=== PATIENT | male | born 1985 | race Caucasian/White ===

== ENCOUNTER 2023-11-20 03:46 | Emergency (ER) | payer MEDICAID ==
[~2023-11-20] VITALS: Ht 185.4 cm; Wt 78.0 kg
[2023-11-20 03:58] VITALS: BP 120/89; PULSE 95; RESP 18; TEMP 98.2; O2SAT 98
== END 2023-11-20 06:19 | disposition left against medical advice (07) ==
LOC: ER 03:48
DX: M54.50 Low back pain, unspecified (principal); Z53.21 Procedure and treatment not carried out due to patient leaving prior to being seen by health care provider
CPT/HCPCS: 99281

== ENCOUNTER 2023-11-22 13:04 | Emergency (ER) | payer MEDICAID ==
[~2023-11-22] VITALS: Ht 185.4 cm; Wt 76.4 kg
[2023-11-22] MEDS ORDERED: bacitracin 15gm ointment TP ONE (14:35)
[2023-11-22 15:32] VITALS: BP 128/77; PULSE 94; RESP 16; TEMP 98.2; O2SAT 100
== END 2023-11-22 15:39 | disposition home or self-care (01) ==
LOC: ER 13:04
DX: S01.81XD Laceration without foreign body of other part of head, subsequent encounter (principal); F17.200 Nicotine dependence, unspecified, uncomplicated; F12.10 Cannabis abuse, uncomplicated; F15.10 Other stimulant abuse, uncomplicated; Z88.8 Allergy status to other drugs, medicaments and biological substances; X58.XXXD Exposure to other specified factors, subsequent encounter
CPT/HCPCS: 99282

== ENCOUNTER 2023-11-30 20:23 | Emergency (ER) | payer MEDICAID ==
[~2023-11-30] VITALS: Ht 175.3 cm; Wt 70.0 kg
[2023-11-30 20:29] VITALS: BP 144/80; PULSE 80; RESP 18; TEMP 98; O2SAT 99
== END 2023-11-30 20:55 | disposition home or self-care (01) ==
LOC: ER 20:24
DX: M25.562 Pain in left knee (principal); F12.90 Cannabis use, unspecified, uncomplicated; F15.90 Other stimulant use, unspecified, uncomplicated; Z91.09 Other allergy status, other than to drugs and biological substances
CPT/HCPCS: 99281

== ENCOUNTER 2023-12-04 01:30 | Emergency (ER) | payer MEDICAID ==
[~2023-12-04] VITALS: Ht 185.4 cm; Wt 74.4 kg
[2023-12-04 04:24] VITALS: BP 132/74; PULSE 90; RESP 16; TEMP 98; O2SAT 100
== END 2023-12-04 04:26 | disposition home or self-care (01) ==
LOC: ER 01:30
DX: M79.672 Pain in left foot (principal); F12.90 Cannabis use, unspecified, uncomplicated; F15.90 Other stimulant use, unspecified, uncomplicated; Z91.09 Other allergy status, other than to drugs and biological substances
CPT/HCPCS: 99281

== ENCOUNTER 2023-12-08 12:58 | Emergency (ER) | payer MEDICAID ==
[~2023-12-08] VITALS: Ht 185.4 cm; Wt 73.6 kg
[2023-12-08 13:07] VITALS: TEMP 98.1
[2023-12-08 14:02] VITALS: BP 101/55; PULSE 92; RESP 18; O2SAT 99
[2023-12-08] MEDS ORDERED: ibuprofen tablet 400 MG TABLET PO ONE (14:10)
== END 2023-12-08 14:29 | disposition home or self-care (01) ==
LOC: ER 12:59
DX: R61 Generalized hyperhidrosis (principal); Z59.00 Homelessness unspecified; Z56.0 Unemployment, unspecified
CPT/HCPCS: 99282

== ENCOUNTER 2024-01-26 22:16 | Emergency (ER) | payer MEDICAID, OTHER ==
[~2024-01-26] VITALS: Ht 180.3 cm; Wt 68.2 kg
[2024-01-26 22:19] VITALS: BP 148/88; PULSE 116; TEMP 98.5; O2SAT 96
[2024-01-26 23:32] VITALS: RESP 19
[2024-01-26] MEDS: ketorolac trometh inj. 60 MG/2 ML VIAL IM ONE (23:32)
[2024-01-26] MEDS: CefTRIAXone 1000mg IM Kit (w/lidocaine diluent) IM ONE (23:39)
[2024-01-26] MEDS ORDERED: CEPH-585 PO (23:46)
[2024-01-27 00:32] LABS: BASOPHILS % (AUTO) 0.6 % (0-1); EOSINOPHILS # (AUTO) 0.2 X10'3 (0-0.9); EOSINOPHILS % (AUTO) 2.7 % (0-6); HEMATOCRIT 36.5 % (42.0-52.0); HEMOGLOBIN 12.4 g/dl (14.0-17.9); LYMPHOCYTES # (AUTO) 1.7 X10'3 (1.1-4.8); LYMPHOCYTES % (AUTO) 22.7 % (21-51); MEAN CORPUSCULAR HEMOGLOBIN 29.2 PG (27.0-31.0); MEAN CORPUSCULAR VOLUME 85.9 FL (78-98); MEAN PLATELET VOLUME 8.3 FL (7.4-10.4); MONOCYTES # (AUTO) 0.8 X10'3 (0-0.9); MONOCYTES % (AUTO) 10.4 % (2-12); NEUTROPHILS # (AUTO) 4.9 X10'3 (1.8-7.7); NEUTROPHILS % (AUTO) 63.6 % (42-75); PLATELET COUNT 234 X10'3 (140-440); RED BLOOD COUNT 4.25 X10'6 (4.70-6.10); RED CELL DISTRIBUTION WIDTH 14.7 % (11.5-14.5); WHITE BLOOD COUNT 7.7 X10'3 (4.5-11.0)
[2024-01-27 00:42] LABS: ALANINE AMINOTRANSFERASE 50 U/L (12-78); ALBUMIN 3.7 G/DL (3.4-5.0); ALBUMIN/GLOBULIN RATIO 1.2 (1.1-1.5); ALKALINE PHOSPHATASE 94 IU/L (46-116); ANION GAP 9 (8-16); ASPARTATE AMINO TRANSFERASE 32 U/L (10-37); BILIRUBIN,TOTAL 0.4 MG/DL (0.1-1.0); BLOOD UREA NITROGEN 17 MG/DL (7-18); BUN/CREATININE RATIO 22.1 (10.0-20.0); CALCIUM 8.3 MG/DL (8.5-10.1); CHLORIDE 103 MMOL/L (99-107); CREATININE 0.77 MG/DL (0.60-1.10); GLUCOSE 107 MG/DL (70-104); POTASSIUM 3.6 MMOL/L (3.5-5.1); SODIUM 141 MMOL/L (135-145); TOTAL CARBON DIOXIDE 28.6 MMOL/L (24-32); TOTAL PROTEIN 6.7 G/DL (6.4-8.2); eCRCL 125 ML/MIN; eGFR > 90 ML/MIN
== END 2024-01-27 00:03 | disposition home or self-care (01) ==
LOC: ER 22:17
DX: M79.672 Pain in left foot (principal); M79.671 Pain in right foot; F15.90 Other stimulant use, unspecified, uncomplicated; F12.90 Cannabis use, unspecified, uncomplicated; Z56.0 Unemployment, unspecified; Z59.00 Homelessness unspecified
CPT/HCPCS: 36415; 80053; 85025; 96372; 99285; J0696; J1885; 99284

== ENCOUNTER 2024-02-12 15:56 | Emergency (ER) | payer SELFPAY ==
[~2024-02-12] VITALS: Ht 177.8 cm; Wt 75.0 kg
[2024-02-12 16:13] VITALS: BP 156/92; PULSE 90; RESP 22; TEMP 98.5; O2SAT 10
== END 2024-02-12 16:23 ==
LOC: ER 15:57
DX: F12.10 Cannabis abuse, uncomplicated; F15.10 Other stimulant abuse, uncomplicated; Z79.899 Other long term (current) drug therapy
CPT/HCPCS: 99283